=== PATIENT | female | born 1965 | race Caucasian/White ===

== ENCOUNTER 2021-05-25 19:09 | Emergency (ER) | payer OTHER, MEDICARE ==
[~2021-05-25 19:09] MED LIST: BENTYL 20MG TAB20 MG PO; CEFUROXIME500 MG PO; DECADRON6 MG PO; FLAGYL500 MG PO; IBU600 MG PO; NEURONTIN400 MG PO; PHENERGAN 25 MG25 M1 PO; PROAIR HFA8.5 GM INH; SOMA350 MG PO; TYLENOL 500 MG500 MG PO; ZOFRAN ODT4 MG PO; ZOFRAN4 MG PO
[2021-05-25 20:32] LABS: HEMOGLOBIN 15.8 gm/dl (12.3-15.3); RED BLOOD COUNT 4.99 M/UL (4.00-5.10); WHITE BLOOD COUNT 8.1 K/UL (4.5-11.0)
[2021-05-25 20:48] LABS: BUN/CREATININE RATIO 13 (0-10)
[2021-05-25] MEDS ORDERED: COLACE 100MG C100 MG PO (22:35)
[2021-05-25] MEDS ORDERED: MIRALAX17 GM PO (22:35)
[2021-05-25] MEDS ORDERED: BENTYL 20MG TAB20 MG PO (22:35)
== END 2021-05-25 22:45 | disposition home or self-care (01) ==
LOC: ER1 19:09
PROVIDERS: Physician Assistant Medical
DX: K59.00 Constipation, unspecified (principal); R11.2 Nausea with vomiting, unspecified; E87.5 Hyperkalemia; Z90.49 Acquired absence of other specified parts of digestive tract; Z88.5 Allergy status to narcotic agent; Z88.1 Allergy status to other antibiotic agents; F17.200 Nicotine dependence, unspecified, uncomplicated; Z20.822 Contact with and (suspected) exposure to COVID-19
CPT/HCPCS: 80053; 81001; 83605; 83690; 85025; 96374; 96375; 99284; C9113; J2405; J2550; J7030; Q9967; U0002